=== PATIENT | female | born 1970 | race Caucasian/White ===

== ENCOUNTER 2018-08-18 11:01 | Day surgery (SDC) | payer BC ==
[2018-08-18] MEDS ORDERED: LACTATED RINGERS 1,000 ML IV ONE (11:43)
[2018-08-18 11:45] VITALS: RESP 16; TEMP 97.6
[2018-08-18] MEDS ORDERED: PROPOFOL 10 MG/ML 20 ML VIAL IV ONE (12:13)
[2018-08-18] MEDS ORDERED: LIDOCAINE 1% INJ 10MG/ML (20 ML MDV) ONE (12:13)
--- NOTE | 2018-08-18 13:03 | P.PCN ---
Date of Procedure: 08/18/18 Description of Procedure: BRIEF HISTORY: The patient is a pleasant 48-year-old female who presents for outpatient colonoscopy for evaluation of episodes of bright red blood per rectum. The patient reports that she has constipation at baseline for which she only takes a probiotic. She reports intermittent episodes of diarrhea. During episodes of constipation patient will most bright red blood per rectum. PROCEDURE PERFORMED: Colonoscopy with cold forcep biopsied. PREOPERATIVE DIAGNOSIS: Blood per rectum. ESTIMATED BLOOD LOSS: Minimal. IV sedation per Anesthesia. PROCEDURE: After informed consent was obtained, the patient, was brought into the endoscopy unit. IV sedation was administered by Anesthesia under continuous monitoring. Digital rectal examination was normal. Initially the Olympus CF- 190 flexible video colonoscope was then inserted in the rectum, gradually advanced into the cecum without any difficulty. Careful examination was performed as the scope was gradually being withdrawn. Ileocecal valve and the appendiceal orifice were visualized and appeared normal. Prep was excellent. Mucosa of the cecum, ascending colon, transverse colon, descending colon, sigmoid colon, and rectum appeared normal. Some mild erythema in the sigmoid colon likely indicative of scope trauma was seen and biopsied. Retroflexion was performed in the rectum and no lesions were seen. The patient tolerated the procedure well. IMPRESSION: Normal-appearing colon from rectum to cecum. Mild erythema in sigmoid colon likely from scope trauma, biopsied. Mild internal hemorrhoids. RECOMMENDATIONS: Findings of this examination were discussed with the patient. Okay for diet. Await pathology from biopsies. Repeat colonoscopy in 10 years unless signs or symptoms warrant. Would recommend starting bowel regimen.
[2018-08-18 13:15] VITALS: BP 114/85; PULSE 65
== END 2018-08-18 13:43 | disposition home or self-care (01) ==
LOC: ORWHC2ENDO 11:01
PROVIDERS: ATTEND Internal Medicine
DX: K62.5 Hemorrhage of anus and rectum (principal); K64.8 Other hemorrhoids; E78.5 Hyperlipidemia, unspecified; F32.9 Major depressive disorder, single episode, unspecified; J45.909 Unspecified asthma, uncomplicated; K21.9 Gastro-esophageal reflux disease without esophagitis; Z88.8 Allergy status to other drugs, medicaments and biological substances
CPT/HCPCS: 88305; 45380; J2001; J2704

== ENCOUNTER → 2024-03-01 | Outpatient (CLI) | payer BC ==
--- NOTE | 2024-03-23 18:52 | MM ---
Reason for Exam: Screening (asymptomatic). Last mammogram was performed 2 year(s) and 0 month(s) ago. Patient History: Menarche at age 12. Patient has no children. Left ovary removed at age 42. Right ovary removed at age 42. Hysterectomy at age 42. Postmenopausal. Maternal aunt had breast cancer at or over age 50. Risk Values: Lorna 5 year model risk: 1.3%. NCI Lifetime model risk: 9.1%. Prior Study Comparison: 01/31/2018 Bilateral Screening Mammogram, [facility]. 02/17/2023 Bilateral Screening Mammogram, [facility]. Tissue Density: There are scattered areas of fibroglandular density. Findings: Analyzed By CAD. Bilateral chronic nodularity. There is no suspicious group of microcalcifications or new suspicious mass in either breast. Overall Assessment: Benign, BI-RAD 2 Management: Screening Mammogram of both breasts in 1 year. . Patient should continue monthly self-breast exams. A clinical breast exam by your physician is recommended on an annual basis. This exam should not preclude additional follow-up of suspicious palpable abnormalities. Note on Lorna scores and lifetime risk: 1. A Lorna score greater than 3% is considered moderate risk. If this is the case, consider specialist referral to assess eligibility for a risk reducing agent. 2. If overall lifetime risk for the development of breast cancer is 20% or higher, the patient may qualify for future screening with alternating mammogram and breast MRI. Electronically signed and approved by: Solitario Jameson M.D. Radiologist
== END | disposition home or self-care (01) ==
LOC: RADMAMWWP 18:13
PROVIDERS: ATTEND Family Medicine
DX: Z12.31 Encounter for screening mammogram for malignant neoplasm of breast (principal); Z78.0 Asymptomatic menopausal state; Z80.3 Family history of malignant neoplasm of breast; Z90.721 Acquired absence of ovaries, unilateral
CPT/HCPCS: 77063; 77067